=== PATIENT | male | born 1985 | race Two or more races ===

== ENCOUNTER 2017-03-18 20:12 | Emergency (ER) | payer BC ==
[2017-03-18 20:57] LABS: CALCIUM 8.7 mg/dL (8.5-10.1); CARBON DIOXIDE 29.2 mmol/L (21-32); CHLORIDE SERUM 106 mmol/L (98-107); GFR1 > 60 mL/min; GLUCOSE SERUM 144 mg/dL (74-106); POTASSIUM SERUM 3.8 mmol/L (3.5-5.1); SODIUM SERUM 140 mmol/L (136-145)
[2017-03-18 21:11] LABS: microscopic required? YES; urine erythrocyte 2+ (NEGATIVE)
[2017-03-18 22:05] VITALS: BP 163/99
== END 2017-03-18 22:05 | disposition home or self-care (01) ==
LOC: ED 20:12
PROVIDERS: Emergency Medicine
DX: R31.9 Hematuria, unspecified (principal); R30.0 Dysuria
CPT/HCPCS: 36415; 87491; 87591; J1885